=== PATIENT | male | born 1945 | race Caucasian/White ===

== ENCOUNTER → 2017-05-13 | Outpatient (CLI) | payer MEDICARE ==
--- NOTE | ~2017-05-13 | MR112 ---
[facility] A Service of [facility] RADIOLOGY TEXT RESULTS PATIENT: PELON LIRA LOCATION: [facility] : 45 UNIT #: [id number] AGE: [address]: Mikal Shah MD SEX: M ORDER DR: [id number] [address] [address] [id number] O MR#: [id number] Acc #: [id number] NAME: PELON LIRA. : 1945 SEX: M STUDY DATE/TIME: 05/13/2017 15:33 UNIT: [facility] ROOM: STUDY DESCRIPTION: MR Lumbar WWo Contrast Attending Physician: Mikal Shah M.D. Referring Physician: Mikal Shah M.D. Ordering Physician: Mikal Shah M.D. Primary Care Physician: Mikal Shah M.D. MRI CENTER REPORT This report is preliminary unless electronic signature is present. EXAM MRI of the lumbar spine with and without contrast dated 05/13/2017 COMPARISON MRI lumbar spine with and without contrast dated 09/22/2015. HISTORY Surgery x3. Increased low back pain which extends into the left lower extremity for 2 months. FINDINGS Multisequence, multiplanar imaging of the lumbar spine was obtained with and without contrast. 20 mL of MultiHance was administered intravenously. Vertebral body heights and alignment are preserved. Disc osteophyte complex are noted at multiple levels. Conus terminates at T12-L1. Signal of conus and cauda equina are within normal limits. Pre- and paravertebral soft tissues do not demonstrate any significant abnormality. Posterior decompression changes are noted at L4-5 and L5-S1. Correlate with operative note. Stable. Mild edematous changes are noted along the posterior dependent subcutaneous soft tissue of the upper to mid back. L1-2: Disc osteophyte complex with mild bilateral facet change. No significant canal stenosis or neural foraminal narrowing. Stable. L2-3: Disc osteophyte complex which is slightly prominent in bilateral foraminal to extraforaminal regions with mild inferior bilateral neural foraminal narrowing. Borderline size to mild canal stenosis is noted with mild bilateral facet changes. Stable. L3-4: Disc osteophyte complex which is asymmetrically prominent in bilateral foraminal to extraforaminal regions. Moderate right and moderate to severe left facet hypertrophic changes are noted with spurs and soft tissue thickening along the anterior medial aspect of the left STS. [facility] A Service of [facility] RADIOLOGY TEXT RESULTS PATIENT: [facility]EL[facility]IRA [id number] 45 UNIT #: [id number] AGE: [address]: Mikal Shah MD SEX: M ORDER DR: facet joint. Severe left and mild right facet hypertrophic changes are noted with severe canal stenosis. [id number]-[id number] bilateral lateral recess stenosis, moderate to severe left and mild to moderate right neural foraminal narrowing are present. Relatively stable given the differences in slice selection except for worsening canal stenosis. L4-5: Disc osteophyte complex with very severe bilateral facet hypertrophic changes, transverse severe canal stenosis, moderate to severe bilateral lateral recess stenosis which is contributed by spurs and synovial soft tissue thickening in the anterior medial aspect of bilateral facet joints. There is also joint fluid in the left facet joint. Severe bilateral neural foraminal narrowing are noted. Relatively stable. L5-S1: Disc osteophyte complex with severe right and moderate left facet hypertrophic changes, mild to moderate right lateral recess stenosis, moderate to severe bilateral neural foraminal narrowing. There is probably a superimposed right foraminal to extraforaminal broad-based protrusion with moderate to severe bilateral neural foraminal narrowing. Relatively stable. IMPRESSION 1. Stable postoperative changes are noted at L4-5 and L5-S1 with removal of L5 spinous process. 2. Degenerative changes are again seen at L4-5 and L5-S1 levels, stable. 3. Degenerative changes noted in the nonoperative levels are predominantly stable. At L3-4, findings appear to be slightly worse, likely related to difference in slice selection or mild interval worsening. Dictated by... Tu Tamez M.D. THIS IS AN ELECTRONICALLY VERIFIED REPORT Tu Tamez M.D. at 05/16/2017 5:22 PM CPR/mjs TD: 05/14/2017 14:02 JOB #: [id number] MRI CENTER REPORT Page 1 of 1
[2017-05-13 18:00] LABS: POC - CREATININE 1.08 mg/dL (0.64-1.27); POC - GFR >60.0 mL/min (>60)
== END | disposition home or self-care (01) ==
LOC: SMRI 14:59
PROVIDERS: Internal Medicine
DX: M48.06 Spinal stenosis, lumbar region (principal); M47.896 Other spondylosis, lumbar region; M99.83 Other biomechanical lesions of lumbar region
CPT/HCPCS: 72158; 82565; A9581